=== PATIENT | female | born 1970 | race Caucasian/White ===

== ENCOUNTER → 2018-12-08 12:05 | Outpatient (CLI) | payer BC, SELFPAY ==
[2016-10-19 03:21] VITALS: BMI 30.7
[2018-12-08 12:33] LABS: International Normalized Ratio 1.2; Prothrombin Time (Protime)PT. 14.5 SECONDS (11.7-14.9)
== END ==
PROVIDERS: Family Provider Family Medicine; PCP Family Medicine; Referring Provider Physician Assistant; Visit Provider Physician Assistant
DX: K55.069 Acute infarction of intestine, part and extent unspecified (principal)
CPT/HCPCS: 85610

== ENCOUNTER → 2018-12-16 14:30 | Outpatient (CLI) | payer BC, SELFPAY ==
[2016-10-19 03:21] VITALS: BMI 30.7
[2018-12-16 14:59] LABS: International Normalized Ratio 1.6
== END ==
PROVIDERS: Family Provider Family Medicine; PCP Family Medicine; Referring Provider Physician Assistant; Visit Provider Physician Assistant
DX: K55.069 Acute infarction of intestine, part and extent unspecified (principal)
CPT/HCPCS: 85610

== ENCOUNTER → 2018-12-23 | Outpatient (CLI) | payer BC, MEDICARE, SELFPAY ==
[2016-10-19 03:21] VITALS: BMI 30.7
[2018-12-23 16:29] LABS: International Normalized Ratio 2.1; Prothrombin Time (Protime)PT. 23.1 SECONDS (11.7-14.9)
== END | disposition home or self-care (01) ==
LOC: LABSPEC 16:09
PROVIDERS: Family Provider Family Medicine; PCP Family Medicine; Referring Provider Physician Assistant; Visit Provider Physician Assistant
DX: K55.069 Acute infarction of intestine, part and extent unspecified (principal)
CPT/HCPCS: 85610

== ENCOUNTER → 2019-01-13 | Outpatient (CLI) | payer BC, MEDICARE, SELFPAY ==
[2016-10-19 03:21] VITALS: BMI 30.7
[2019-01-13 16:06] LABS: International Normalized Ratio 2.2; Prothrombin Time (Protime)PT. 24.7 SECONDS (11.7-14.9)
== END | disposition home or self-care (01) ==
LOC: LABSPEC 15:48
PROVIDERS: Family Provider Family Medicine; PCP Family Medicine; Referring Provider Physician Assistant; Visit Provider Physician Assistant
DX: K55.069 Acute infarction of intestine, part and extent unspecified (principal)
CPT/HCPCS: 85610

== ENCOUNTER → 2019-01-20 | Outpatient (CLI) | payer BC, MEDICARE, SELFPAY ==
[2016-10-19 03:21] VITALS: BMI 30.7
[2019-01-20 15:16] LABS: International Normalized Ratio 1.9; Prothrombin Time (Protime)PT. 21.8 SECONDS (11.7-14.9)
== END | disposition home or self-care (01) ==
LOC: LABSPEC 14:47
PROVIDERS: Family Provider Family Medicine; PCP Family Medicine; Referring Provider Physician Assistant; Visit Provider Physician Assistant
DX: K55.069 Acute infarction of intestine, part and extent unspecified (principal)
CPT/HCPCS: 85610

== ENCOUNTER → 2019-01-27 | Outpatient (CLI) | payer BC, MEDICARE, SELFPAY ==
[2019-01-27 18:07] LABS: Prothrombin Time (Protime)PT. 22.3 SECONDS (11.7-14.9)
== END | disposition home or self-care (01) ==
LOC: LABSPEC 17:15
PROVIDERS: Family Provider Family Medicine; PCP Family Medicine; Referring Provider Physician Assistant; Visit Provider Physician Assistant
DX: K55.069 Acute infarction of intestine, part and extent unspecified (principal)
CPT/HCPCS: 85610

== ENCOUNTER → 2019-02-10 | Outpatient (CLI) | payer BC, MEDICARE, SELFPAY ==
[2016-10-19 03:21] VITALS: BMI 30.7
[2019-02-10 17:32] LABS: International Normalized Ratio 2.3; Prothrombin Time (Protime)PT. 25.6 SECONDS (11.7-14.9)
== END | disposition home or self-care (01) ==
LOC: LABSPEC 17:02
PROVIDERS: Family Provider Family Medicine; PCP Family Medicine; Referring Provider Physician Assistant; Visit Provider Physician Assistant
DX: K55.069 Acute infarction of intestine, part and extent unspecified (principal)
CPT/HCPCS: 85610

== ENCOUNTER → 2019-03-16 | Outpatient (CLI) | payer BC, MEDICARE, SELFPAY ==
[2016-10-19 03:21] VITALS: BMI 30.7
[2019-03-16 15:49] LABS: International Normalized Ratio 2.2; Prothrombin Time (Protime)PT. 24.2 SECONDS (11.7-14.9)
== END | disposition home or self-care (01) ==
LOC: LABSPEC 15:18
PROVIDERS: Family Provider Family Medicine; PCP Family Medicine; Referring Provider Physician Assistant; Visit Provider Physician Assistant
DX: K55.069 Acute infarction of intestine, part and extent unspecified (principal)
CPT/HCPCS: 85610

== ENCOUNTER → 2019-03-23 | Outpatient (CLI) | payer BC, MEDICARE, SELFPAY ==
[2016-10-19 03:21] VITALS: BMI 30.7
[2019-03-23 11:57] LABS: International Normalized Ratio 2.9; Prothrombin Time (Protime)PT. 30.8 SECONDS (11.7-14.9)
== END | disposition home or self-care (01) ==
LOC: LABSPEC 11:31
PROVIDERS: Family Provider Family Medicine; PCP Family Medicine; Referring Provider Physician Assistant; Visit Provider Physician Assistant
DX: K55.069 Acute infarction of intestine, part and extent unspecified (principal)
CPT/HCPCS: 85610

== ENCOUNTER → 2019-05-12 | Outpatient (CLI) | payer BC, MEDICARE, SELFPAY ==
[2016-10-19 03:21] VITALS: BMI 30.7
[2019-05-12 14:23] LABS: International Normalized Ratio 1.8; Prothrombin Time (Protime)PT. 20.5 SECONDS (11.7-14.9)
== END | disposition home or self-care (01) ==
LOC: LABSPEC 14:03
PROVIDERS: Family Provider Family Medicine; PCP Family Medicine; Referring Provider Physician Assistant; Visit Provider Physician Assistant
DX: K55.069 Acute infarction of intestine, part and extent unspecified (principal)
CPT/HCPCS: 85610

== ENCOUNTER → 2019-05-19 | Outpatient (CLI) | payer BC, MEDICARE, SELFPAY ==
[2016-10-19 03:21] VITALS: BMI 30.7
[2019-05-19 14:10] LABS: International Normalized Ratio 2.9; Prothrombin Time (Protime)PT. 30.1 SECONDS (11.7-14.9)
== END | disposition home or self-care (01) ==
LOC: LABSPEC 13:50
PROVIDERS: Family Provider Family Medicine; PCP Family Medicine; Referring Provider Physician Assistant; Visit Provider Physician Assistant
DX: K55.069 Acute infarction of intestine, part and extent unspecified (principal)
CPT/HCPCS: 85610

== ENCOUNTER → 2019-05-25 12:37 | Outpatient (CLI) | payer BC, MEDICARE, SELFPAY ==
[2016-10-19 03:21] VITALS: BMI 30.7
[2019-05-25 13:00] LABS: Prothrombin Time (Protime)PT. 31.1 SECONDS (11.7-14.9)
== END ==
PROVIDERS: Family Provider Family Medicine; PCP Family Medicine; Referring Provider Physician Assistant; Visit Provider Physician Assistant
DX: K55.069 Acute infarction of intestine, part and extent unspecified (principal)
CPT/HCPCS: 85610

== ENCOUNTER 2019-06-18 15:30 | Outpatient (RCR) | payer BC, MEDICARE, SELFPAY ==
[2016-10-19 03:21] VITALS: BMI 30.7
--- NOTE | 2019-06-08 12:31 | HP.PTEVAL_ITS ---
Patient's Visit Information NADER WINTER is a 48 year old F referred to Physical Therapy by Abdullahi Aquino DO with a diagnosis of CHRONIC PAIN SYNDROME,LUMBAR RADICULOPATHY,DDD THORACIC. Date of Evaluation: 06/08/19 Physical Therapist: Adam Ledesma, PT, Cert MDT, OCS - Visit Plan Frequency: 2x /Week Duration: 4 Weeks Plan: PT INTERVENTIONS WITH AQUATIC PT FOR CERVICAL/LUMBAR ROM,STRENGTH UE/LE,POSTURAL EX'S ,DLS ,ENDURANCE - Subjective Findings: This 48 y/o female presents to physical therapy with chronic pain lumbar,neck and thoracic pain. Patient has spine pain many years. Injuried neck at work 2008 and has had lumbar pain 2002.. Patient has had cervical fusion C5-7 2008 and cervical fusion 4-2012 with cage. Lumbar surgery laminectomy 2002,lumbar fusion 2012. Patient has multiple comorbities that affects pain . Patient has cervical and lumbar pain affects UE/LE . Pain described as ache and sharp pain.Aggravating factors walking < 10mins with cane,standing 20 mins, beding,lifting,sitting. Patient has h/o falling especially on uneven services. Symptoms affects sleeping. Patient c/o parathesia/tingling arms and legs. Patient has spine stimulator.Coughing/sneezing +. Bowel/bladder -. Symptoms affects function and ADLS' unable to work. Patient has had epidural injections,PT. Patient has h/o DVT thus on coumadin. Patient symptoms affects QOL. SOCIAL: single. VOCATION: diablity - Pain Bilateral Neck Pain Intensity (Out of 10): 7 Pain Intensity Range: 10 Bilateral Back Pain Intensity (Out of 10): 9 Pain Intensity Range: 10 Bilateral Lower Extremity Pain Intensity (Out of 10): 9 Pain Intensity Range: 10 - Objective POSTURE: mild foward posture hips/kness flexed. GAIT: ambulates with anatlagic gait with cane. NEURO:c/o parathesia/tingling UE/LE,reflexes C5-6-7,L3 -4,L4-5,L5-S1 1/3. PALAPTION: UT/levators,paraspinals. CERVICAL: rotation/lateral flexion mod loss,extension /flexion severe loss. MMT: BUE 4-/5 except shoulders 4-/5. LUMBAR ROM: flexion mod loss with decrease curver reversal,extension severe loss,side glides mod loss. FLEXABLITY: hams mod/severe loss,pirifirmis mod loss. MMT: quads/hams 4-/5 ,ankle 4-/5,hip flexion 3+/5 - Special Tests C/S Radiculapathy - Left Upper limb tension test: Negative C/S Radiculapathy - Right Upper limb tension test: Negative Vertebral Artery Test: Negative L/S Slump test left side: Positive L/S Slump test right side: Positive L/S Left Straight Leg Raise: Positive L/S Right Straight Leg Raise: Positive - Goals Goal 1:: Patient be Independant with Aquatic PT. Goal Time Frame: 4-6 Weeks Goal 2:: Patient decrease pain by 40% > to improve function with ADL'S Goal Time Frame: 4-6 Weeks Goal 3:: Patient improve lumbar/cervical ROM for function of recovery. Goal Time Frame: 4-6 Weeks Goal 4:: Patient to increase strength BUE/LE by 1/2 grade to improve function. Goal Time Frame: 4-6 Weeks Goal 5:: Patient to improve back owestry score by 5 points > to improve QOL. Goal Time Frame: 4-6 Weeks - Rehabilitation Potential Physical Therapy Diagnosis: This patient has multiple comorbities with along with spine pain with mutiple surgeries in cervical and lumbar with pain ,poor ROM ,decrease strength ,gait ROM cervical/lumbar ,decrease strength UE/LE thus benifit from skilled PT. Rehabilitation Potential: Fair - Anticipated Interventions Patient/Client Instruction: Educate patient on: Condition, Plan of Care For the Purpose of:: To decrease pain, To increase ROM, To improve muscle performance and motor function, To improve ability to perform ADL's, To increase tolerance to activity/condition/position, To improve performance and independence with ADL's, To improve ability of physical actions for home/community/work/leisure, To improve gait and locomotor functions, To improve health of tissue, To decrease soft tissue restriction, To increase flexibility/ROM, To improve endurance, To reduce risk of recurrence, To improve ability to perform tasks related to life management Therapeutic Exercise to Include: Strength training, Endurance training, Balance training, Postural training, Flexibilty training, Gait and locomotor training, In an aquatic setting, Active ROM, Dynamic Lumbar Stabilization For the Purpose of:: To decrease pain, To increase ROM, To improve muscle performance and motor function, To improve ability to perform ADL's, To increase tolerance to activity/condition/position, To improve ability of physical actions for home/community/work/leisure, To improve health of tissue, To decrease soft tissue restriction, To increase flexibility/ROM, To reduce risk of recurrence, To improve ability to perform tasks related to life management Thank you for the opportunity to evaluate your patient. For Medicare and Medicare HMO plans, please review the plan of care and approve it. It will need to be FAXED BACK to us at [phone] for Medicare purposes. For Medicare only, by signing this I certify the plan of care. Please let me know if there are questions or concerns regarding this plan of care. Physician Signature: Date:
--- NOTE | 2019-11-19 15:21 | HP.PTDCSUM ---
HP - PT D/C Summary It has been my pleasure to treat NADER WINTER under orders from Abdullahi Aquino DO, for the diagnosis of CHRONIC PAIN SYNDROME,LUMBAR RADICULOPATHY,DDD THORACIC for a total of 3 visit(s). Discharge Date: Please see the following information for a summary of their discharge status. - Subjective Subjective: Pt reports that she is always in pain. Typical ranges of 8-10/10. Mostly located in back and legs. Sleep is poor but improving. Normally getting around 4 hours of sleep but has improved to about 6 hours with recent trial of medical marijuana. - Pain Bilateral Neck Pain Intensity (Out of 10): Unrated Bilateral Back Pain Intensity (Out of 10): 8 Bilateral Lower Extremity Pain Intensity (Out of 10): 8 - Overall Improvement % Improvement: 80 - Objective Objective/Function: Good tolerance to small advancements in exercises. Pain no better or worse following session. Currently standing approximately 20 minutes before pain sets in. - Goals Goal 1:: Patient be Independant with Aquatic PT. Goal 2:: Patient decrease pain by 40% > to improve function with ADL'S Goal 3:: Patient improve lumbar/cervical ROM for function of recovery. Goal 4:: Patient to increase strength BUE/LE by 1/2 grade to improve function. Goal 5:: Patient to improve back owestry score by 5 points > to improve QOL. - Plan Plan: PT INTERVENTIONS WITH AQUATIC PT FOR CERVICAL/LUMBAR ROM,STRENGTH UE/LE,POSTURAL EX'S ,DLS ,ENDURANCE - D/C Information If there are questions or concerns regarding this patient's physical therapy, please feel free to call me at [phone]. Thank you for the referral of this patient. Sincerely, Adam Ledesma, PT, Cert MDT, OCS
--- NOTE | 2019-11-19 15:22 | HP.PTDCNRP_ITS ---
HP - Discharge Summary (1) - Patient Information NADER WINTER was seen in my office for initial evaluation on 06/08/19. The following Plan of Care was established for this patient: Initial Frequency: 2x /Week Initial Duration: 4 Weeks - Anticipated Interventions Patient/Client Instruction: Educate patient on: Condition, Plan of Care For the Purpose of:: To decrease pain, To increase ROM, To improve muscle per formance and motor function, To improve ability to perform ADL's, To increase tolerance to activity/condition/position, To improve performance and independence with ADL's, To improve ability of physical actions for home/community/work/leisure, To improve gait and locomotor functions, To improve health of tissue, To decrease soft tissue restriction, To increase flexibility/ROM, To improve endurance, To reduce risk of recurrence, To improve ability to perform tasks related to life management Therapeutic Exercise to Include: Strength training, Endurance training, Balance training, Postural training, Flexibilty training, Gait and locomotor training, In an aquatic setting, Active ROM, Dynamic Lumbar Stabilization For the Purpose of:: To decrease pain, To increase ROM, To improve muscle performance and motor function, To improve ability to perform ADL's, To increase tolerance to activity/condition/position, To improve ability of physical actions for home/community/work/leisure, To improve health of tissue, To decrease soft tissue restriction, To increase flexibility/ROM, To reduce risk of recurrence, To improve ability to perform tasks related to life management This patient was last seen in our office 06/18/19. Pertinent comments regarding their Physical therapy will appear below: Pateint seen for PT for Aquatic PT for lumbar pain for ROM /strength/DLS ,thus is d/c. At this point I will be discontinuing this patient from physical therapy. I would be happy to see this patient again in the future if found appropriate by the physician. Thank you! Adam Ledesma, PT, Cert MDT, OCS
== END 2019-06-18 19:00 | disposition home or self-care (01) ==
LOC: PT 15:30
PROVIDERS: Family Provider Family Medicine; PCP Family Medicine; Referring Provider Anesthesiology Pain Medicine; Visit Provider Anesthesiology Pain Medicine
DX: Z79.01 Long term (current) use of anticoagulants (principal); G89.4 Chronic pain syndrome; Z96.89 Presence of other specified functional implants; Z79.899 Other long term (current) drug therapy; R29.6 Repeated falls; M54.16 Radiculopathy, lumbar region; M47.816 Spondylosis without myelopathy or radiculopathy, lumbar region; M96.1 Postlaminectomy syndrome, not elsewhere classified; F11.20 Opioid dependence, uncomplicated; M51.34 Other intervertebral disc degeneration, thoracic region; M79.10 Myalgia, unspecified site; M54.5 Low back pain; M51.36 Other intervertebral disc degeneration, lumbar region
CPT/HCPCS: 97113; 97162

== ENCOUNTER → 2025-03-23 | Outpatient (CLI) | payer BC, SELFPAY ==
--- NOTE | 2025-03-23 16:19 | CT_ITS ---
PROCEDURE: SINUS/FACIAL BONE 03/23/2025 REASON FOR EXAM: SINUSITIS TECHNIQUE: SINUS/FACIAL BONE Coronal and Sagittal reconstruction series were provided. One or more dose reduction techniques were used (e.g., Automated exposure control, adjustment of the mA and/or kV according to patient size, use of iterative reconstruction technique). RADIATION DOSE SUMMARY: CTDlvol: mGy DLP: mGycm COMPARISON: None FINDINGS: Clear sphenoid and frontal sinuses as well as the maxillary antra and ethmoidal air cells. Uncinate Processes: No deviation or bulla formation O-M UNIT: patent. Sphenoethmoidal recesses. Patent Fovea Ethmoidalis: Normal position. Fovea ethmoidalis and cribriform plate are not low lying Nasal Septum: minimally bowed convex to the left side. Turbinates: Thickening of the mucosa covering the right inferior turbinate. Nasopharynx: no obvious abnormalities. Mastoid air cells and middle ear clefts: Unremarkable Facial Bones and mandible: Unremarkable. CT/Sinus/Facial Bone IMPRESSION: Minimally bowed nasal septum convex to the left side. Thickening of the mucosa covering the right inferior turbinate. Unremarkable rest of the study. Reading [facility]
== END | disposition home or self-care (01) ==
LOC: CT 16:14
PROVIDERS: PCP Family Medicine; Referring Provider Otolaryngology; Visit Provider Otolaryngology
DX: J32.9 Chronic sinusitis, unspecified (principal)
CPT/HCPCS: 70486